=== PATIENT | male | born 1965 | race Caucasian/White ===

== ENCOUNTER 2023-05-27 18:12 | Emergency (ER) | payer OTHER, SELFPAY ==
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
[2023-05-27 18:43] VITALS: BP 109/72; PULSE 81; RESP 16; TEMP 36.4; O2SAT 92
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
== END 2023-05-27 21:50 | disposition home or self-care (01) ==
LOC: ANHED 21:44
PROVIDERS: Emergency Provider Physician Assistant
DX: M25.562 Pain in left knee (principal); W19.XXXA Unspecified fall, initial encounter
CPT/HCPCS: 73562; 99283

== ENCOUNTER → 2023-06-11 07:20 | Outpatient (CLI) | payer OTHER, SELFPAY ==
--- NOTE | ~2023-06-11 | MR_ITS ---
MRI of the left knee Clinical history: Pain Technique: Coronal proton density and proton density-weighted images, sagittal proton-density and T2 fat-sat images, and axial proton-density fat-saturated images were acquired. Findings: Anterior and posterior cruciate ligaments are intact. Medial collateral ligament is intact, with mild chronic soft tissue edema. Lateral collateral ligament complex is intact. Popliteus tendon is intact. Medial and lateral menisci are intact, without evidence of tear. Articular cartilage in the medial and lateral compartments is intact. There is focal high-grade chond ral malacia the inferior aspect of the lateral patellar facet, with focal subchondral cystic change. There is mild chondromalacia the femoral trochlea laterally. Extensor mechanism is intact. Small joint effusion present. No significant Morales's cyst. There is mil d prepatellar subcutaneous soft tissue edema, nonspecific. Impression: Soft tissue edema about the MCL could reflect grade 1 MCL sprain. Correlate clinically. Focal high-grade chondromalacia patella, as detailed above. Small joint effusion with nonspecific prepatellar subcutaneous soft tissue edema. Reviewed, dictated and finalized at [facility]. PAINTER HELPER Impression: Soft tissue edema about the MCL could reflect grade 1 MCL sprain. Correlate cli nically. Focal high-grade chondromalacia patella, as detailed above. Small joint effusion with nonspecific prepatellar subcutaneous soft tissue julia dias
== END ==
PROVIDERS: PCP Orthopaedic Surgery; Visit Provider Orthopaedic Surgery
DX: S80.02XA Contusion of left knee, initial encounter (principal); M94.262 Chondromalacia, left knee; M25.462 Effusion, left knee; R60.0 Localized edema; X58.XXXA Exposure to other specified factors, initial encounter
CPT/HCPCS: 73721

== ENCOUNTER 2024-06-13 07:00 | Outpatient (NON) | payer OTHER, SELFPAY ==
--- OUTSIDE RECORDS SUMMARY | 2024-06-14 07:33 | XMS_ITS | Referral Summary ---
Author Organization [facility] Address [address] [place] [address] Care Team Providers Care Licensed Architect Name Role Phone Luis Peterson MD Primary Care Provider [phone] Allergies Active Allergy Reactions Criticality Noted Date Comments Codeine Nausea only,Vomiting Reaction: NAUSEA, VOMITING, Medications lansoprazole (PREVACID) 15 mg capsule Take 15 mg by mouth daily Active Active Problems No known active problems Immunizations Name Administration Dates Next Due Influenza, Quadrivalent, Alejandra l Culture-based MDCK, Preservative Free, Antibiotic Free, Intramuscular 04/02/2021 Moderna SARS-CoV-2 Monovalen t Vaccination (12+ YRS) 04/13/2021,09/03/2020,07/17/2020 Social History Tobacco Use Types Packs/Day Years Used Date Smoking Tobacco: Never PHQ-2 Answer Date Recorded PHQ-2 Total Score (If total score is 3 or more points, staff should administer the PHQ-9) 0 10/09/2021 Personal Safety Answer Date Recorded Getting School Help Needed Not on file 07/31 Sex and Gender Information Value Date Recorded Sex Assigned at Not on file 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 Gender Identity Not on file Sexual Orientation Not on file Last Filed Vital Signs Vital Sign Reading Time Taken Comments Blood Pressure 114/70 10/09/2021 8:38 AM CDT Pulse 75 10/09/2021 8:38 AM CDT Temperature 36.8 ??C (98.3 ??F) 10/09/2021 8:38 AM CD T Respiratory Rate - - Oxygen Saturation 98% 10/09/2021 8:38 AM CDT Inhaled Oxygen Concentration - - Weight 86.5 kg (190 lb 11.2 oz) 10/09/2021 8:38 AM CDT Height 167.6 cm (5' 6 ) 10/09/2021 8:38 AM CDT Body Mass Index 30.78 10/09/2021 8:38 AM CDT Plan of Treatment Not on file Insurance [employer] [facility] HMO Member Subscriber Plan / Payer (Ef fective 2022-Present) Name:Jorge More Relation to Subscriber:Self Name:Jorge More Payer ID:[id number] (NA) Type:AET HMO/PPO Address: [facility] [id number] [place] [id number] Care Teams Licensed Architect Relationship Specialty Start Date End Date Luis Peterson MD [address] [facility] [address] [place] [id number] PCP - General Family Medicine 06/27/21
--- OUTSIDE RECORDS SUMMARY | 2024-06-14 07:33 | XMS_ITS | Clinical Summary ---
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 Gender Identity Not on file Sexual Orientation Not on file Obstetrics History Last Filed Vital Signs Vital Sign Reading [...] 10/09/2021 8:38 AM CDT Plan of Treatment Health Maintenance Due Date Last Done Comments Colon Cancer Screening-Colonoscopy 1967 Hepatitis C Screening 1967 Prostate Cancer Screening-PSA 1967 DTaP/Tdap/Td Vaccine (1 - Tdap) 1978 Hepatitis B Screening 1985 Zoster Vaccine (1 of 2) 2017 Depression Screening 10/09/2022 10/09/2021 Regular Well Visit/Exam 18-64 10/09/2022 10/09/2021 Covid-19 Vaccine (4 2023-2 5 season) 2024 04/13/2021, 09/03/2020, 07/17/2020 Influenza Vaccine (#1) 2024 04/02/2021 Pneumococcal vaccine <65 Aged Out No longer eligible based on patient's age to complete this topic Insurance HMO Care Teams Welding Foreman Relationship Specialty Start Date End Date Luis Peterson MD [address] [facility] [address] [address] PCP - General Family Medicine 06/27/21
== END 2024-06-13 07:01 | disposition home or self-care (01) ==
PROVIDERS: PCP Family Medicine; Visit Provider Internal Medicine Gastroenterology
DX: K21.9 Gastro-esophageal reflux disease without esophagitis (principal)
CPT/HCPCS: 88305